=== PATIENT | female | born 2000 | race Asian ===

== ENCOUNTER → 2023-08-22 | Outpatient (CLI) | payer OTHER ==
[2023-08-23 03:06] LABS: RUBELLA AB IGG-REFLAB 4.94 index (Immune >0.99); RUBEOLA (MEASLES) IGG >300.0 AU/mL (Immune >16.4); VARICELLA ZOSTER IGG AB TITER 634 index (Immune >165)
== END | disposition home or self-care (01) ==
LOC: MSR 14:11
PROVIDERS: ATTEND Internal Medicine
DX: Z02.1 Encounter for pre-employment examination (principal); R76.11 Nonspecific reaction to tuberculin skin test without active tuberculosis
CPT/HCPCS: 71045; 86735; 86762; 86765; 86787; 87340; 36415-L1; 36415-TC